=== PATIENT | female | born 1980 | race Caucasian/White ===

== ENCOUNTER 2017-06-24 07:55 | Observation (INO) | payer BC ==
[2017-06-21 08:44] VITALS: BMI 28.8
[2017-06-24] MEDS ORDERED: Midazolam 2 MG/2 ML VIAL ONE (08:26)
[2017-06-24] MEDS ORDERED: Propofol 10 mg/ml Inj (20 ML) ONE (08:26)
[2017-06-24] MEDS ORDERED: Lactated Ringer's 1,000 ML IV ONE ×4 (09:50→12:00)
[2017-06-24] MEDS: ceFAZolin 1 gm in NS 2 GM/200 ML BAG IVPB ONE ×2 (10:00→10:20)
[2017-06-24] MEDS ORDERED: Iohexol 240 (50 ml) ONE (10:03)
[2017-06-24] MEDS ORDERED: Morphine 4 MG/ML VIAL ONE ×2 (11:29→12:12)
[2017-06-24] MEDS ORDERED: Neostigmine Methylsulfate 3mg/3ml Syringe IV ONE (11:44)
[2017-06-24] MEDS ORDERED: Dexamethasone 4 mg/1 ml IVP PRN (12:33)
[2017-06-24] MEDS ORDERED: HYDROmorphone 0.5 mg/0.5 ml ISec IVP PRN (12:33)
[2017-06-24] MEDS ORDERED: Oxycodone/Acetaminophen 5/325 mg Tab PO PRN (12:36)
--- NOTE | 2017-06-24 12:39 | PCM.SURG1 ---
Surgeon's Initial Post Op Note - Surgeon's Notes Surgeon: Dr. Duke Sales Service Manager: Dr. Oliver, PGY-3 Type of Anesthesia: General Endo Anesthesia Administered By: Dr. Egan Pre-Operative Diagnosis: Cholecystitis Operative Findings: See operative report Post-Operative Diagnosis: Same Operation Performed: Lap Cholecystectomy with IOC Specimen/Specimens Removed: Gallbladder Estimated Blood Loss: EBL {In ML}: 50 Blood Products Given: N/A Drains Used: No Drains Post-Op Condition: Good Date of Surgery/Procedure: 06/24/17 Time of Surgery/Procedure: 12:39
[2017-06-24] MEDS ORDERED: HYDROmorphone 1 mg/ml ISec ONE ×2 (12:51→13:34)
[2017-06-24] MEDS: Lactated Ringer's 1,000 ML IV SCH (17:00)
[2017-06-24] MEDS: Morphine 4 MG/ML VIAL IVP PRN (17:48)
--- NOTE | 2017-06-24 17:58 | RAD ---
PROCEDURE: Intraoperative Fluoroscopy. HISTORY: CHOLECYSTITIS FINDINGS: Fluoroscopic assistance was provided for intraoperative cholangiography. Total fluoroscopic time (continuous mode) utilized during the procedure (seconds) 21.1. Please refer to the operative report from ALYSON Perez. Total exam DLP: (mGy) 9.57.
--- NOTE | 2017-06-24 22:26 | OP ---
PROCEDURE DATE: 06/24/2017 PREOPERATIVE DIAGNOSES: Cholecystitis, cholelithiasis. POSTOPERATIVE DIAGNOSES: Cholecystitis, cholelithiasis. PROCEDURE CARRIED OUT: Laparoscopic cholecystectomy with C-arm cholangiogram. SURGEON: Paramjit Duke Jr., MD AUTO BUMPER MECHANIC: Dr. Oliver. ANESTHESIOLOGIST: Mr. Brasher. ANESTHESIA: General. INDICATIONS: The patient is a middle-aged woman who underwent gastric bariatric surgery with significant weight loss, now presents with abdominal pain and gallstones. OPERATIVE FINDINGS: Cholangiogram carried out to the cystic duct showed a slightly dilated duct, free flow into the duodenum, visualization of the hepatic radicles. There was no evidence of any stones or extravasation. No evidence of any retained stones. The rest of the intraoperative findings were unremarkable. There were minimal adhesions throughout the abdomen. DESCRIPTION OF PROCEDURE: The patient was given general anesthesia, intravenous antibiotics, and Venodyne boots. Obdulio trocar was inserted via cut-down technique. Two additional 5 mm trocars were placed. The cystic duct and cystic artery were identified and view of safety obtained. The cystic artery clipped above the hepatic artery. After this had been done, we obtained very good hemostasis in the liver bed and removed the gallbladder from the umbilical port. There were very big stones and the incision at the umbilicus had to be enlarged. There were no other unusual complications or findings. Hemostasis was checked again prior to closure and liver bed was inspected again without any significant bleeding. When no drains were left, the abdomen was closed. The operation carried out was laparoscopic cholecystectomy with C-arm cholangiogram. Paramjit Duke Jr., MD cc:
[2017-06-24 23:02] VITALS: RESP 20
[2017-06-25] MEDS: Morphine 4 MG/ML VIAL IVP PRN ×2 (02:03→07:51)
[2017-06-25 07:27] VITALS: BP 130/70; PULSE 61; TEMP 98.3; O2SAT 99
[2017-06-25] MEDS: Lactated Ringer's 1,000 ML IV SCH (07:53)
[2017-06-25 08:06] LABS: BASO % 0.5 % (0.0-2.0); HEMOGLOBIN 11.8 g/dL (11.0-16.0); LYMPH # 1.5 K/uL (1.0-4.3); LYMPH % 17.8 % (20.0-40.0); MEAN CELL VOLUME 90.6 fL (81.0-99.0); MEAN CORPUSCULAR HEMOGLOBIN 31.5 pg (27.0-31.0); MEAN CORPUSCULAR HGB CONC 34.8 g/dL (33.0-37.0); MEAN PLATELET VOLUME 8.1 fL (7.2-11.7); MONO # 0.6 K/uL (0.0-0.8); MONO % 7.8 % (0.0-10.0); NEUT # 6.1 K/uL (1.8-7.0); NEUT % 73.9 % (50.0-75.0); RBC 3.73 Mil/uL (3.80-5.20); RED CELL DISTRIBUTION WIDTH 12.9 % (11.5-14.5)
[2017-06-25 08:07] LABS: WHITE BLOOD COUNT 8.3 K/uL (4.8-10.8)
[2017-06-25 08:56] LABS: ALB/GLOB RATIO 1.2 (1.0-2.1); ALBUMIN 3.5 g/dL (3.5-5.0); BLOOD UREA NITROGEN 14 mg/dL (7-17); CALCIUM 8.4 mg/dl (8.6-10.4); GFR AFRICAN-AMERICAN > 60; GFR NON-AFRICAN AMERICAN > 60
--- NOTE | 2017-06-25 09:03 | CP.PCM.DIS ---
Provider - Provider Date of Admission: 06/24/17 12:33 Attending physician: Paramjit Duke Jr, MD Primary care physician: Srikanth- general surgery Consults: None Time Spent in preparation of Discharge (in minutes): 35 Diagnosis - Discharge Diagnosis (1) S/P cholecystectomy Status: Acute (2) Acute cholecystitis Status: Acute (3) Cholelithiasis Status: Acute Hospital Course - Lab Results Lab Results: Most Recent Lab Values WBC 8.3 K/uL (4.8-10.8) D 06/25/17 07:59 RBC 3.73 Mil/uL (3.80-5.20) L 06/25/17 07:59 Hgb 11.8 g/dL (11.0-16.0) 06/25/17 07:59 Hct 33.8 % (34.0-47.0) L 06/25/17 07:59 MCV 90.6 fL (81.0-99.0) 06/25/17 07:59 MCH 31.5 pg (27.0-31.0) H 06/25/17 07:59 MCHC 34.8 g/dL (33.0-37.0) 06/25/17 07:59 RDW 12.9 % (11.5-14.5) 06/25/17 07:59 Plt Count 185 K/uL (130-400) 06/25/17 07:59 MPV 8.1 fL (7.2-11.7) 06/25/17 07:59 Neut % (Auto) 73.9 % (50.0-75.0) 06/25/17 07:59 Lymph % (Auto) 17.8 % (20.0-40.0) L 06/25/17 07:59 [place] % (Auto) 7.8 % (0.0-10.0) 06/25/17 07:59 Eos % (Auto) 0.0 % (0.0-4.0) 06/25/17 07:59 Baso % (Auto) 0.5 % (0.0-2.0) 06/25/17 07:59 Neut # (Auto) 6.1 K/uL (1.8-7.0) 06/25/17 07:59 Lymph # (Auto) 1.5 K/uL (1.0-4.3) 06/25/17 07:59 [place] # (Auto) 0.6 K/uL (0.0-0.8) 06/25/17 07:59 Eos # (Auto) 0.0 K/uL (0.0-0.7) 06/25/17 07:59 Baso # (Auto) 0.0 K/uL (0.0-0.2) 06/25/17 07:59 Sodium 137 mmol/L (132-148) 06/25/17 07:59 Potassium 3.8 mmol/L (3.6-5.2) 06/25/17 07:59 Chloride 102 mmol/L (98-107) 06/25/17 07:59 Carbon Dioxide 24 mmol/L (22-30) 06/25/17 07:59 Anion Gap 15 (10-20) 06/25/17 07:59 BUN 14 mg/dL (7-17) 06/25/17 07:59 Creatinine 0.7 mg/dL (0.7-1.2) 06/25/17 07:59 Est GFR ( Amer) > 60 06/25/17 07:59 Est GFR (Non-Af Amer) > 60 06/25/17 07:59 Random Glucose 99 mg/dL (65-105) 06/25/17 07:59 Calcium 8.4 mg/dl (8.6-10.4) L 06/25/17 07:59 Total Bilirubin 1.0 mg/dL (0.2-1.3) 06/25/17 07:59 Alkaline Phosphatase 40 U/L (38-126) 06/25/17 07:59 Total Protein 6.5 g/dL (6.3-8.3) 06/25/17 07:59 Albumin 3.5 g/dL (3.5-5.0) 06/25/17 07:59 Globulin 3.0 gm/dL (2.2-3.9) 06/25/17 07:59 Albumin/Globulin Ratio 1.2 (1.0-2.1) 06/25/17 07:59 - Hospital Course Hospital Course: 36F w/no sig PMH admitted s/p laparoscopic cholecystectomy for pain management. Patient with some continued pain overnight, well controlled with pain medications. Pt tolerating diet, ambulating to bathroom. Stable and ready for discharge home with pain prescription. Diagnoses: s/p laparoscopic cholecystectomy - Date & Time of H&P Date of H&P: 06/24/17 Discharge Exam - Head Exam Head Exam: ATRAUMATIC, NORMAL INSPECTION, NORMOCEPHALIC - Eye Exam Eye Exam: EOMI, Normal appearance - ENT Exam ENT Exam: Mucous Membranes Moist, Normal Exam - Neck Exam Neck exam: Full Rom, Normal Inspection - Respiratory Exam Respiratory Exam: NORMAL BREATHING PATTERN, UNREMARKABLE - Cardiovascular Exam Cardiovascular Exam: REGULAR RHYTHM, +S1, +S2 - GI/Abdominal Exam GI & Abdominal Exam: Soft, Tenderness (over umbilical incision site. ). absent : Distended, Firm, Guarding Additional comments: bandaids in place with strike thought in suprapubic dressing, other dressings c/ d/i - Extremities Exam Extremities exam: normal inspection - Neurological Exam Neurological exam: Alert, CN II-XII Intact, Normal Gait, Oriented x3 - Psychiatric Exam Psychiatric exam: Normal Affect, Normal Mood - Skin Skin Exam: Dry, Intact, Normal Color, Warm Discharge Plan - Discharge Medications Prescriptions: Docusate Sodium [Colace] 100 mg PO BID #10 capsule - Follow Up Plan Condition: GOOD Disposition: HOME/ ROUTINE Instructions: Gallstones, Cholecystectomy, Laparoscopic Surgery Additional Instructions: Please leave the bandaids in place until you see Dr. Duke next week. Please call to make an appointment with Dr. Duke in his office next week. Ok to shower if you cover them with plastic to keep them dry. Ok to resume normal diet. Do not sit in a bath or hot tub. No heavy lifting for 4-6 wks. Please take Motrin or Tylenol before you take the pain medication. The pain medication can make you constipated, please take the colace if you take the pain medication. Referrals: Paramjit Duke Jr., MD [Staff Provider] -
[2017-06-25 09:12] LABS: ALT/SGPT 77 U/L (9-52); AST/SGOT 58 U/L (14-36)
[2017-06-25] MEDS ORDERED: Pneumococcal 23-Valent Vaccine IM ONE (09:44)
== END 2017-06-25 12:00 | disposition home or self-care (01) ==
LOC: C.SDS 07:55 → C.9S 12:33 → C.3T 19:32
PROVIDERS: ADMIT Surgery Vascular Surgery; ATTEND Surgery Vascular Surgery
DX: K80.10 Calculus of gallbladder with chronic cholecystitis without obstruction (principal)
CPT/HCPCS: 36415; 47563; 74300; 80053; 85025; 88304; 90732; G0009; G0378; J0690; J1100; J1170; J2250; J2270; J2405; J2704; J2710; J3010; J7120